=== PATIENT | female | born 1960 | race Caucasian/White ===

== ENCOUNTER 2024-02-01 21:11 | Emergency (ER) | payer BC, MEDICAID ==
[2024-02-01] MEDS: Doxycycline 100 MG Cap PO ONE (21:54)
== END 2024-02-01 22:09 | disposition home or self-care (01) ==
LOC: JP.ED 21:11
DX: S10.86XA Insect bite of other specified part of neck, initial encounter (principal); W57.XXXA Bitten or stung by nonvenomous insect and other nonvenomous arthropods, initial encounter
CPT/HCPCS: 99282; 99283; A9270